=== PATIENT | male | born 1955 | race Caucasian/White ===

== ENCOUNTER 2017-02-19 00:23 | Day surgery (SDC) | payer OTHER ==
[2017-02-19] VITALS (12 sets, daily range): BP systolic 118–153; BP diastolic 70–92; PULSE 65–78; RESP 12–17; O2SAT 94–98
[~2017-02-19] VITALS: Ht 165.1 cm; Wt 92.8 kg
[~2017-02-19 00:23] MED LIST: ASPI-628 PO; ATOR20TA65 PO; CARV12.52 PO; FURO40TA4 PO; HYDR-4003 PO; LOSA100T29 PO; NITR0.4T6 SL; POTA-62 PO
[2017-02-19] MEDS ORDERED: Heparin 5,000 Units/500 mL NS Premix IV ONE ×2 (08:21→09:01)
[2017-02-19] MEDS ORDERED: fentaNYL-PF 50 mCg/mL 2 mL Inj ONE (08:26)
--- NOTE | 2017-02-19 14:23 | NUR ---
Discharge instructions reviewed with patient. Right groin remains intact, patient has been ambulatory to bathroom and sitting on side of bed.He is discharged ambulatory.
--- NOTE | 2017-02-19 20:37 | CS94 ---
[address] [address] DIAGNOSTIC CARDIAC CATHETERIZATION PATIENT: FAMILIA LINDSEY : 1955 MR#: [id number] ADMIT: 02/19/2017 JOB ID: [id number] SERVICE DATE: 02/19/2017 PROCEDURES PERFORMED: 1. Abdominal aortography. 2. Bilateral iliac angiography with distal runoff to the level of the foot bilaterally. INDICATIONS: A 61-year-old man with peripheral vascular disease and lifestyle limiting claudication and a recent abnormal duplex ultrasound study. DESCRIPTION OF PROCEDURE: Informed consent was obtained. Patient brought to catheterization laboratory. Bilateral groins were prepped and draped in sterile fashion. The area over the right femoral artery was anesthetized with lidocaine. Using a micropuncture kit, access was obtained and a 4 and then a 5-[place] sheath was advanced. Pigtail catheter was advanced up to the level of the abdominal aorta and angiography was performed with runoff performed bilaterally. Given the findings, a vascular surgery consult is planned. The case was ended, the sheath was removed and hemostasis achieved via manual pressure without complications. FINDINGS: ABDOMINAL AORTOGRAPHY: The visualized portions of the abdominal aorta do not appear dilated. Right side: The common iliac has no evidence of obstructive disease. The external iliac has no evidence of obstructive disease. On the right side, the common femoral artery has mild disease. The superficial femoral artery has mild disease in its proximal segment with evidence of some calcification. The profunda has no evidence of obstructive lesions. The superficial femoral artery continues down without evidence of obstructive disease. There is evidence of likely some calcification seen in the adductor canal but, again, brisk flow is appreciated. The popliteal artery has mild luminal irregularities. There is a tibioperoneal trunk giving rise to a posterior tibial artery as well as peroneal artery and an anterior tibial artery is seen. At the level of the foot, there is good runoff. Left side: Common iliac has mild disease. No obstructive lesions. Internal iliac is widely patent. The external iliac is widely patent until its very distal segment. At the distal segment of the external iliac artery, there is ectatic disease which appears no greater than moderate. On the images obtained, there appears to be a fairly high-grade stenosis appreciated at the level of the common femoral artery extending into the proximal superficial femoral artery. This appears to be heavily calcified. The profunda is visualized, and it is also potentially involved with the calcified plaque seen in the common femoral artery. The superficial femoral artery continues down into the level of the adductor canal without any obstructive lesions appreciated. At the very distal superficial femoral artery versus proximal popliteal artery, there is an occlusion which is collateralized and reconstitutes at the level of the tibioperoneal trunk. The posterior tibial artery appears occluded and is collateralized. The anterior tibial artery appears patent and appears to continue down to the level of the foot. The peroneal artery also appears to be occluded. HEMODYNAMICS: Please see equipment operator/laborer/supervisor report. MEDICATIONS GIVEN IN THE CASE: Please see equipment operator/laborer/supervisor report. IMPRESSION: 1. On the left leg, there is evidence for significant calcific plaque appreciated extending from the distal portion of the external iliac artery into the common femoral artery and extending into the proximal superficial femoral artery. This plaque may also extend into the ostial profunda. 2. Evidence for occlusion of the distal SFA versus proximal popliteal artery with reconstitution at the level of the tibioperoneal trunk with evidence for collateralized posterior tibial artery and a patent anterior tibial artery to the foot. 3. On the right side, there is no evidence for significant obstructive disease appreciated. Given findings of calcific disease in the left common femoral artery as described will request a vascular surgery consultation (although percutaneous athrectomy could be considered, this generally gives suboptimal results and creates a risk for embolization in this patient with compromised distal runoff. MTDD
[2017-03-05] MEDS ORDERED: CILO50TA PO (09:51)
== END 2017-02-19 23:59 | disposition home or self-care (01) ==
LOC: SOUO 00:23
PROVIDERS: ATTEND Internal Medicine
DX: I70.212 Atherosclerosis of native arteries of extremities with intermittent claudication, left leg (principal); I25.5 Ischemic cardiomyopathy; I25.10 Atherosclerotic heart disease of native coronary artery without angina pectoris; E78.5 Hyperlipidemia, unspecified; Z87.891 Personal history of nicotine dependence; G47.33 Obstructive sleep apnea (adult) (pediatric); J44.9 Chronic obstructive pulmonary disease, unspecified; I10 Essential (primary) hypertension; Z95.1 Presence of aortocoronary bypass graft; Z79.82 Long term (current) use of aspirin
CPT/HCPCS: 36200; 75716; 99152; 99153; C1769; J1200; J1644; J2060; J2250; J3010; J7030; Q9967

== ENCOUNTER 2017-03-09 08:34 | Inpatient (IN) | payer OTHER ==
--- NOTE | 2017-03-05 19:31 | PCM.ANEPRE ---
Anesthesia Pre-Op Review Reason for Review: cardio hx, intolerant CPAP, questionable METS <4 Anesthesia Recommendations: Proceed with Procedure Additional Comments 61y M with CAD s/p CABG and PAD scheduled for left femoral endarterectomy. His activity is limited with leg claudication after approx 20ft of walking. He has been evaluated with an echo which shows LVEF EF 50-55% and no significant valvular pathology. He also has a diagnosis of severe MARLEE but does not tolerated CPAP. A/P: Patient is in need of this operation. He does not seem to have active cardiac symptoms or problems at present with a reassuring echo. --no further testing needed --B-yara (Coreg) on AM of surgery or the night before --MARLEE protocol post-op --reassess on DOS Chart Reviewed by: MD Logan Steinberg Scott D MD March 05, 2017 19:31
[~2017-03-09] VITALS: Ht 165.1 cm; Wt 92.0 kg
[2017-03-09] VITALS (13 sets, daily range): BP systolic 97–125; BP diastolic 52–73; PULSE 65–98; RESP 10–21; O2SAT 93–99
[~2017-03-09 08:34] MED LIST changes: +CILO50TA PO; +Clindamycin 900 mg/50 mL D5W IV ONE; +Lactated Ringer's 1,000 ML IV ONE
[2017-03-09] MEDS ORDERED: Heparin 1,000 Unit/mL Inj MISC ONE (11:22)
[2017-03-09] MEDS ORDERED: Bupivacaine-MPF 0.5% 30 mL Inj INFILTRATE ONE (11:22)
[2017-03-09] MEDS ORDERED: Lactated Ringer's 1,000 ML IV SCH (11:44)
[2017-03-09] MEDS ORDERED: Lactated Ringer's 500 ML IV PRN (11:44)
[2017-03-09] MEDS ORDERED: Atropine 0.4 mg/mL Inj IVPUSH PRN (11:45)
[2017-03-09] MEDS ORDERED: MetoCLOpramide 5 mg/mL 2 mL Inj IVPUSH PRN ×2 (11:45→14:50)
[2017-03-09] MEDS ORDERED: Phenylephrine 10,000 mCg/mL Inj IVPUSH PRN (11:45)
[2017-03-09] MEDS ORDERED: Labetalol 5 mg/mL 4 mL Inj IV PRN (11:45)
[2017-03-09] MEDS ORDERED: EPHEDrine Sulfate 50 mg/mL Inj IVPUSH PRN (11:45)
[2017-03-09] MEDS ORDERED: Ondansetron 2 mg/mL 2 mL Inj IVPUSH PRN ×2 (11:45→14:50)
--- NOTE | 2017-03-09 11:47 | PCM.HPANE ---
Patient Data Surgeon Admitting Provider: Attending Provider:Ken Quiñonez MD Primary Care Physician:Kassy Penaloza MD Other Provider:Michelle Oconnoringham Anesthesia Reason for Visit Embolism And Thrombosis Of Arteries Of The Lower E EMBOLISM AND THROMBOSIS OF ARTERIES OF THE LOWER E Ht/WT & BMI Height (Feet): 5 Height (Inches): 5 Weight (Kilograms): 92.5 Body Mass Index 33.00 Allergies Coded Allergies: Penicillins (Verified Allergy, Severe, N/V, 03/18/14) lisinopril (Verified Allergy, Severe, COUGH, 03/18/14) hydrochlorothiazide (Unverified Allergy, Unknown, 03/18/14) Past Anesthesia History Anesthesia History: Denies:: Anesthesia Reactions, Fam Anesthesia Reaction Diabetes History Hx Diabetes?: Yes Type of Diabetes: Diet Controlled MRSA MRSA: No Medications Blood Thinner: Aspirin Hypertension Medication: Yes Home Meds Incl Beta Carmen: Yes Reported Medications Potassium Chloride ER 20 Meq Tablet.er20 Meq PO DAILY Ref 0 TAKE WITH FOOD 02/18/17 Carvedilol 12.5 Mg Jgdagu46.5 Mg PO BID Ref 0 02/18/17 Atorvastatin Calcium 20 Mg Qobgbt53 Mg PO DAILY Ref 0 02/18/17 Furosemide 40 Mg Moyefn51 Mg PO DAILY 02/18/17 Aspirin (Aspir 81)81 Mg Tablet.dr81 Mg PO DAILY Ref 0 03/18/14 Hydrocodone-Acetaminophen 5-325 mg 1 Each Tablet1 Each PO Q6 PRN For Pain Ref 0 03/18/14 Losartan Potassium 100 Mg Tpygfw683 Mg PO DAILY 03/18/14 Nitroglycerin SL 0.4 Mg Tab.subl0.4 Mg SL PRN PRN For Chest Pain 03/18/14 Discontinued Reported Medications Cilostazol 50 Mg Qhhqsk87 Mg PO BID 03/05/17 History History of ENT Problems?: No HEENT History: Denies:: Cataracts Glaucoma Hearing Problem Denture Type: Full- Lower Partial- Lower Teeth Condition: Missing Teeth Hx of Heart Problems?: Yes Cardiovascular History: Positive for:: Hypertension Peripheral Vascular (current admission problem - claudication) Denies:: AICD Heart Murmur Irregular Heartbeat Pacemaker Rheumatic Fever Valvular Heart Disease (echo 2017- ef 50-55%) Hx of Respiratory Problem?: Yes Respiratory History: Positive for:: Dyspnea (sob after flight of stairs ) Use of C-PAP Machine (sleep study done- can not tolerate CPAP) Denies:: Asthma COPD Emphysema Hemoptysis Pneumonia Pulmonary Embolism Use of Inhalers / NEBS Hx Neurologic Problems?: Yes Neurological History: Denies:: Alzheimer's Disease Dementia Headaches Multiple Sclerosis Parkinson's Disease Seizures TIA Hx of GI Problems?: No Hx of Problems?: No Genitourinary History: Denies:: Kidney Stones Urinary Tract Infection Male Hx: Denies:: Prostate Problems Scrotal Mass Testicular Surgery Skin History: Denies:: History Skin Disorders? Pressure Ulcers Hx Musculoskeletal Problems?: No Musculoskeletal History: Denies:: Back Injury Fibromyalgia Joint Replacement Myasthenia Gravis Osteoarthritis Systemic Lupus Hx of Psycho/Social Problems?: No Psycho Social History: Denies:: Anxiety Hx Depression Hx Surgeries?: Yes (CABG) Hx Any Other Health Problems?: Yes Other History: Positive for:: Hospitalization Denies:: Cancer Thyroid Disease History Blood Transfusions: Positive for:: Accept Blood Products? Denies:: Blood Transfuse Reaction Blood Transfusions Hx Diabetes: Yes Hx Alcohol Use: No (not for 15 years)Hx Substance Use: No Smoking Status: Current Every Day Smoker Have You Smoked inLast 12 mo: Yes (quit 3 months ago- 1 pack day) Stop/Bang S-Snoring: Do You Snore Loudly: Yes P-Blood Pressure: treated: Yes B- Body Mass Index > 35 kg/m2: No A- Age over 50: Yes N- Neck Large Circumference: No G- Gender Male: Yes Risk Assessment Category Category 1A: Patient has history of documented sleep apnea, and HAS NOT received any narcotic, sedative or anesthesia administration during this stay. Category 1B: Patient has history of documented sleep apnea, and HAS received any narcotic , sedative or anesthesia administration during this stay Category 2: Patient has SUSPECTED Obstructive Sleep Apnea, and HAS received any narcotic , sedative or anesthesia administration during this stay. Category 3: Patient has SUSPECTED Obstructive Sleep Apnea and HAS NOT received narcotic, sedative or anesthesia administration during this stay. Category 4: Outpatient in Procedural Areas with known sleep apnea or who screen positive for High Risk via the STOP/BANG questionnaire. Exam Exam Vital Signs Vital Signs Date Time Temp Pulse Resp B/P Pulse Ox O2 Delivery O2 Flow Rate FiO2 03/09/17 08:52 35.8 65 12 109/64 95 Room Air General Appearance: Alert, Oriented X3, Cooperative, No Acute Distress HEENT/AIRWAY: MP 2, Neck Movement (FROM), Mouth Opening (3 FBMO) Lungs: Diminished Heart: Regular Rate/Rhythm Meds/Labs/Diagnostics Admission Meds Current Medications Lactated Ringer's (Lr) 1,000 ml @ 120 mls/hr Q8H20M ONCE IV Last administered on 03/09/17 08:37; Start 03/09/17 at 05:00; Stop 03/09/17 at 13:19 Plan Impression Patient chart reviewed, patient interviewed and anesthestic plan with risks, benefits, and alternatives discussed, and informed consent obtained. NPO per Anesth. Guidelines: Yes ASA Physical Status: ASA3 Severe Disease (DM, CAD s/p CABG, vasculopath) Anesthetic Support Modalities: Arterial Line (risks of radial arterial line including bleeding, infection, blood clot, air embolism, decreased blood flow to the hand discussed AQA consent signed) Anesthetic Plan: GA Bene/Risks/Altern/Consents: Yes HP Complete Prior to Induction: Yes Other Risks of postoperative intubation on ventilator in the ICU discussed as well as central line and need to administer blood products. El Joseph MD March 09, 2017 08:55
[2017-03-09] MEDS ORDERED: Lactated Ringer's 1,000 ML IV ONE (12:31)
[2017-03-09] MEDS ORDERED: Heparin 5,000 Unit/mL Inj SUBQ ONE (12:41)
[2017-03-09] MEDS ORDERED: _HYDROcodone/APAP 5-325 mg Tablet PO PRN (14:55)
[2017-03-09] MEDS: fentaNYL-PF 50 mCg/mL 2 mL Inj IVPUSH PRN ×2 (15:24→15:45)
[2017-03-09] MEDS: HYDROmorphone 1 mg/mL Inj IVPUSH PRN ×4 (15:27→21:14)
--- NOTE | 2017-03-09 15:58 | PCM.ANEP1 ---
Post Anesthesia Phase 1 PACU Phase 1 Assessment Vital Signs Vital Signs Date Time Temp Pulse Resp B/P Pulse Ox O2 Delivery O2 Flow Rate FiO2 03/09/17 15:45 71 21 109/71 93 Nasal Cannula 4 03/09/17 15:35 71 10 125/71 97 Nasal Cannula 4 03/09/17 15:20 70 14 113/71 96 Nasal Cannula 4 03/09/17 15:05 36.8 71 12 115/73 98 Nasal Cannula 4 03/09/17 15:00 70 15 108/72 96 Nasal Cannula 4 03/09/17 14:55 72 16 118/65 97 Nasal Cannula 4 03/09/17 14:50 72 14 109/71 98 Simple Mask 8 03/09/17 14:42 37.0 70 16 121/73 99 Simple Mask 8 03/09/17 08:52 35.8 65 12 109/64 95 Room Air Anesthetic Administered: GA Level of Alertness: Awake, talking OH's with Equal Strength: Yes Pain: No Nausea or Vomiting: No Cardiovascular Function and Hy: No Oxygen Delivery: Nasal Cannula Lungs: Diminished Dermatome Level: Full Sensation Complications: No Follow up Care: No El Joseph MD March 09, 2017 15:58
[2017-03-09] MEDS ORDERED: Rocuronium 10 mg/mL 5 mL Inj ONE (16:04)
[2017-03-09] MEDS ORDERED: Neostigmine 1 mg/mL 10 mL Inj ONE (16:04)
[2017-03-09] MEDS ORDERED: fentaNYL-PF 50 mCg/mL 2 mL Inj ONE (16:04)
[2017-03-09] MEDS ORDERED: Glycopyrrolate 0.2 MG/ML 1mL Inj ONE (16:04)
[2017-03-09] MEDS ORDERED: Propofol 10,000 mCg/mL 20 mL Inj ONE (16:04)
[2017-03-09] MEDS ORDERED: Phenylephrine/NS 100 mCg/mL 10 mL Syringe IVPUSH ONE (16:04)
[2017-03-09] MEDS ORDERED: MetoCLOpramide 5 mg/mL 2 mL Inj ONE (16:04)
[2017-03-09] MEDS: Lactated Ringer's 1,000 ML IV SCH (16:29)
--- NOTE | 2017-03-09 17:26 | NUR ---
Post OP Patient arrived to floor via gurney at 1605 on 4L nasal canula, bentley catheter present and patent, and IV fluids running. Patient denies pain, OH. Weak palpable left pedal pulse, warm to the touch, no tingling or numbness present, capillary refill less than 3 seconds. Incision well approximated, soft to the touch, dermabond present, minimal drainage present. Continuous pulse oximetry placed on patient and titrated O2 down to 1L. HOB at 30 degrees. Oriented to room. Will continue to assess incision and pain. Hourly rounding.
[2017-03-09] MEDS: HYDROcodone-APAP 5-325 mg Tablet PO PRN (17:55)
--- NOTE | 2017-03-09 23:42 | OP ---
[address] [address] OPERATIVE REPORT PATIENT: FAMILIA LINDSEY : 1955 MR#: [id number] ADMIT: 03/09/2017 JOB ID: [id number] DATE OF SURGERY: 03/09/2017 PREOPERATIVE DIAGNOSIS(ES): 1. Occluded left common femoral artery. 2. Occluded proximal left deep femoral artery. 3. Occluded left proximal superficial femoral artery. 4. Distal left external artery stenosis. POSTOPERATIVE DIAGNOSIS(ES): OPERATION: 1. Left common femoral endarterectomy. 2. Left deep femoral endarterectomy. 3. Left proximal superficial femoral artery endarterectomy. 4. Distal left external iliac artery endarterectomy. 5. Bovine patch angioplasty. SURGEON: Ken Quiñonez MD. ENTRY LEVEL INSTALLATION TECHNICIAN: Ventura Crowell PA-C. INDICATIONS: A 61-year-old man who has an occlusion of his left common femoral artery. He also has an occlusion of the proximal left deep femoral artery and proximal superficial femoral artery. He has severe exertional pain with his walking tolerance only about 20 feet. After discussing options with the patient, it was elected to proceed with an endarterectomy of the distal left external iliac, left common femoral, proximal left superficial femoral and proximal left deep femoral arteries with patch angioplasty. FINDINGS: His arterial disease was as described above. He had significant calcific atherosclerosis extending from the distal left external iliac through the bifurcation onto the proximal left SFA and deep femoral artery. All arteries were opened. He had marked improvement in his Doppler signals and he had a palpable pulse in both the deep femoral and the SFA at the conclusion of the operation. He had normal arterial inflow from the external iliac. DESCRIPTION OF PROCEDURE: At the beginning and end of the operation, the SCOAP checklist was completed. A general endotracheal anesthetic was induced. A Jo catheter was inserted. He received preoperative antibiotics, his beta-yara and aspirin. Using ChloraPrep, he was prepped and draped in the usual fashion. Before prepping, the dorsalis pedis, posterior tibial and femoral, and common femoral artery Doppler signals were marked. An oblique groin incision was made one fingerbreadth above the left inguinal groin crease. After incising the skin, I used cautery to dissect down to the superficial fascia. After that I used the LigaSure. Venous branches were triply ligated with the LigaSure. Dissection was carried down to the femoral sheath. I then opened it and was able to identify the very hard calcified common femoral artery. I divided the left inguinal ligament and I was able to expose the distal left external iliac artery. I then extended the dissection distally beyond the bifurcation of the common femoral into the SFA and deep femoral arteries. I dissected both of those branches out beyond palpable plaque. I had to go down to branches of the deep femoral artery. I controlled the external iliac and then the SFA and deep femoral arteries with vessel loops, and then I dissected out collaterals off of the common femoral and they were controlled with vessel loops. He was then heparinized with 7500 units of intravenous heparin. After five minutes, he was occluded first distally and then proximally. The only soft part of the artery was the distal external iliac. I made an arteriotomy there and then extended it down through plaque to the bifurcation of the common femoral. I then chose to extend the arteriotomy down the deep femoral. I then performed an endarterectomy and was able to get all the plaque out of the deep femoral, superficial femoral, common femoral, and distal external iliac arteries. The arteriotomy was then closed with a bovine patch angioplasty with running 6-0 Prolene. Both arteries were backflushed prior to doing the closure, inflow was assessed which was normal. The antegrade flow first went into the deep femoral artery and then into the SFA, although the SFA preoperatively was occluded right at the knee joint. There was one bleeding point that I had to repair off the patch angioplasty suture line and then also the deep femoral circumflex collateral required a 6-0 Prolene suture for a small hole in it. At this point, there was no active bleeding. There was one deep subcutaneous venous bleeder that I controlled with the LigaSure. FloSeal was placed over the entire suture line. The Doppler signals of the dorsalis pedis and posterior tibials were assessed and were clearly improved compared to preoperatively. The inguinal ligament was then repaired with running 3-0 Vicryl. The subcutaneous tissue was closed with two layers of running subcutaneous 3-0 Vicryl, the skin with running subcuticular 4-0 Vicryl and Dermabond. Estimated blood loss 50 cc. There were no apparent complications. The final sponge, needle and instrument counts were announced as correct and the patient was returned to the recovery room in stable condition. Critical assistance provided by SHYANNE Tobin
--- NOTE | 2017-03-10 00:42 | NUR ---
Pain/LT groin Pt c/o pain 5/10 and given Dilaudid 0.5mg IVP. Pain decreased to 4/10 and another 0.5mg of Dilaudid given. Pt states medication very helpful compared to [place]. LT groin site with noted minimal drainage with intact sutures. Small bruising noted around the site. Pt able to OH and LLE pedal pulses palpable. Denies numbness and tingling. Care ongoing.
[2017-03-10 01:22] VITALS: BP 118/64; PULSE 69; RESP 18; O2SAT 97
[2017-03-10] MEDS: HYDROmorphone 1 mg/mL Inj IVPUSH PRN (03:36)
[2017-03-10] MEDS: HYDROcodone-APAP 5-325 mg Tablet PO PRN ×3 (05:20→14:51)
[2017-03-10 05:49] LABS: BASOPHILS % (AUTO) 0.2 % (0-3); EOSINOPHILS % (AUTO) 2.6 % (0-5); MONOCYTES % (AUTO) 9.8 % (4-12); Mean Corpuscular Volume 88.2 fL (81-100); NEUTROPHILS % (AUTO) 64.4 % (40-74); Platelet Count 128 bil/L (150-400)
[2017-03-10 06:18] VITALS: BP 137/80; PULSE 81; RESP 20; O2SAT 95
[2017-03-10] MEDS ORDERED: Potassium Chloride 20 mEq SR Tablet PO SCH (08:00)
--- NOTE | 2017-03-10 09:36 | PCM.DISURG ---
Surgical Discharge Instruction Date of Service March 10, 2017 Dates of Hospitalization Date of Hospital Admission March 09, 2017 at 16:03 Providers Admitting Physician: Ken Quiñonez MD Primary Care Physician: Kassy Penaloza MD Attending Physician: Ken Quiñonez MD Diet Discharge Diet: No restrictions Activity Discharge Activity-General: No restrictions Dressing and Incisional Care Hygiene: February shower Follow Up Plan Follow-up appointment: Days (14-21 days) Ken Quiñonez MD March 10, 2017 09:36
--- NOTE | 2017-03-10 10:36 | DIS ---
[address] [address] DISCHARGE SUMMARY PATIENT: FAMILIA LINDSEY : 1955 MR#: [id number] ADMIT: 03/09/2017 JOB ID: [id number] DIS: 03/10/2017 DISCHARGE DIAGNOSES: 1. Occluded left common femoral artery. 2. Occluded proximal left superficial femoral artery. 3. Occluded left deep femoral artery. 4. Hyperlipidemia. 5. Hypertension. 6. Obstructive sleep apnea. OPERATION: Endarterectomy of the left distal external iliac, left common femoral, proximal left superficial femoral artery and proximal left deep femoral artery with patch angioplasty. HISTORY: The patient is a 71-year-old man with significantly limiting left leg claudication. He can only walk about 20 feet. His preoperative assessment revealed the occlusion of his inflow to his left leg as described above. After discussing options with the patient, it was elected to proceed with an endarterectomy extending from the distal left external iliac through the proximal occlusions of the superficial and deep femoral arteries. HOSPITAL COURSE: On the day of admission, his operation was performed. See operative report for details. He had no intraoperative complications. Today, postoperative day one, he is doing well. Has no complaints. His Jo catheter is still in place, has not yet been removed, but has been ordered to be removed. He denies left foot pain. He has pain of his oblique left groin incision. PHYSICAL EXAMINATION: He is alert, no distress. Temperature 37.1, brachial blood pressure 137/80, pulse 81, respiratory rate 20, O2 sat on room air 95%. His oblique left groin incision is healing well. There is no drainage. There is minimal ecchymosis. His left foot is warm and he, surprisingly, has a palpable left dorsalis pedis pulse. This is despite the fact that his left SFA occludes right at the level of the knee joint, and he also only has single-vessel runoff through the anterior tibial. IMPRESSION: Doing well. He can be discharged home. DISPOSITION: He is discharged to home. There are no physical restrictions. He is encouraged to walk as much as possible. He can shower today. There is no specified dietary restrictions. MEDICATIONS: He will take all of his usual medications, includin. Aspirin 81 mg daily. 2. Atorvastatin 20 mg daily. 3. Carvedilol 12.5 mg b.i.d. 4. Losartan 100 mg daily. 5. Furosemide 20 mg daily. 6. Potassium 20 mEq p.o. daily. 7. Hydrocodone with APAP 5/325 for pain. He is given a total of 10. PLAN: He will return to see me in 2-3 weeks.
[2017-03-10] MEDS: Lactated Ringer's 1,000 ML IV SCH (10:50)
--- NOTE | 2017-03-10 11:38 | NUR ---
Evaluation completed. Please go to "Notes" then click on "Assessments and Notes" (bottom left corner of screen). Then select appropriate discipline tab on top of screen.
--- NOTE | 2017-03-10 13:32 | NUR ---
Social Work: Screening/Readiness for Discharge D: EMR reviewed. Pt is a 61 y/o male admitted for embolism and thrombosis of the arteries per H&P. SW met with pt at bedside to conduct initial screening. Pt alert and oriented x3. SW explained role and wrote phone number on white board. Pt confirmed the following: Pt's insurance is [employer] and PCP is Kassy Penaloza MD. SW provided pt with DPOA/advanced directive ppw at pt's request and encouraged pt to provide a copy to the hospital when complete. Pt lives at home alone in [place]. Pt is independent at baseline. PT recommends pt to return home without any further PT needs. Pt will discharge home with son via POV when medically stable. Pt is scheduled to have his Jo removed and then anticipated to discharge per MD. SW does not anticipate any discharge needs at this time. SW will continue to follow. A: Pt who is independent at baseline. P: Pt to discharge home with son via POV when medically stable. No anticipated discharge needs at this time. ELANA will continue to follow. [place]
[2017-03-10 13:33] VITALS: BP 110/62; PULSE 80; RESP 20; O2SAT 94
--- NOTE | 2017-03-10 15:41 | NUR ---
DC Pt discharge instructions reviewed and understood. All belongings with pt. Prescription in pts hand. Pt walks out to car to go home with friend. Denies CP, SOB, Nausea. A&OX4, pain controlled, voiding spontaneously. Care discontinues.
== END 2017-03-10 16:40 | disposition home or self-care (01) | DRG 272 ==
LOC: SAS 08:34 → OSC 16:03
PROVIDERS: ADMIT Surgery; ATTEND Surgery
PROC: 04CJ0ZZ Extirpation of Matter from Left External Iliac Artery, Open Approach (ICD-10-PCS; 2017-03-09)
PROC: 04UL0KZ Supplement Left Femoral Artery with Nonautologous Tissue Substitute, Open Approach (ICD-10-PCS; 2017-03-09)
PROC: 04CL0ZZ Extirpation of Matter from Left Femoral Artery, Open Approach (ICD-10-PCS; principal; 2017-03-09 11:00)
DX: I70.292 Other atherosclerosis of native arteries of extremities, left leg (principal); J44.9 Chronic obstructive pulmonary disease, unspecified; I25.10 Atherosclerotic heart disease of native coronary artery without angina pectoris; I10 Essential (primary) hypertension; Z95.1 Presence of aortocoronary bypass graft; Z87.891 Personal history of nicotine dependence; G47.33 Obstructive sleep apnea (adult) (pediatric); E78.5 Hyperlipidemia, unspecified; I25.5 Ischemic cardiomyopathy; Z79.82 Long term (current) use of aspirin